=== PATIENT | female | born 1980 ===

== ENCOUNTER 2018-06-10 01:24 | Emergency (ER) | payer MEDICAID ==
--- NOTE | 2018-06-10 01:30 | C.PDOC ---
History Of Present Illness 38 year old female presents to the ED c/o abdominal pain associated with nausea, vomit and diarrhea that started after eating tacos at a restaurant on Saturday. Patient states she is not able to tolerate PO. Patient denies fever, chills, rash, dysuria, hematuria, weakness, numbness. Time Seen by Provider: 06/10/18 01:26 Chief Complaint (Nursing): Abdominal Pain History Per: Patient History/Exam Limitations: no limitations Onset/Duration Of Symptoms: Days (3) Current Symptoms Are (Timing): Still Present Context: Food Location Of Pain/Discomfort: Diffuse Quality Of Discomfort: Aching Associated Symptoms: Nausea, Vomiting, Diarrhea, Loss Of Appetite. denies: Urinary Symptoms Exacerbating Factors: Food Recent travel outside of the [place]: No Additional History Per: Patient Abnormal Vaginal Bleeding: No Past Medical History Reviewed: Historical Data, Nursing Documentation, Vital Signs Vital Signs: Last Vital Signs Temp 98.2 F 06/10/18 01:26 Pulse 102 H 06/10/18 01:26 Resp 20 06/10/18 01:26 BP 122/75 06/10/18 01:26 Pulse Ox 96 06/10/18 01:26 - Medical History PMH: Gastritis Surgical History: No Surg Hx Family History: States: Unknown Family Hx - Social History Hx Alcohol Use: Yes Hx Substance Use: No - Immunization History Hx Tetanus Toxoid Vaccination: No Hx Influenza Vaccination: No Hx Pneumococcal Vaccination: No Review Of Systems Constitutional: Negative for: Fever, Chills Cardiovascular: Negative for: Chest Pain Respiratory: Negative for: Shortness of Breath Gastrointestinal: Positive for: Nausea, Vomiting, Abdominal Pain, Diarrhea Genitourinary: Negative for: Dysuria, Hematuria Musculoskeletal: Negative for: Back Pain Skin: Negative for: Rash Neurological: Negative for: Weakness, Numbness, Headache Physical Exam - Physical Exam Appears: Non-toxic, No Acute Distress Skin: Warm, Dry Head: Normacephalic Eye(s): bilateral: Normal Inspection Oral Mucosa: Moist Neck: Supple Chest: Symmetrical Cardiovascular: Rhythm Regular Respiratory: No Rales, No Rhonchi, No Wheezing Gastrointestinal/Abdominal: Soft, Tenderness (diffuse), No Guarding, No Rebound Extremity: Bilateral: Atraumatic, Normal Color And Temperature, Normal ROM Neurological/Psych: Oriented x3, Normal Speech, Normal Cognition Gait: Steady ED Course And Treatment - Laboratory Results Result Diagrams: 06/10/18 01:57 06/10/18 01:57 O2 Sat by Pulse Oximetry: 96 (On RA) Pulse Ox Interpretation: Normal - CT Scan/US CT abd.pelvis Other Rad Studies (CT/US): Read By Radiologist, Radiology Report Reviewed CT/US Interpretation: CT SCAN OF THE ABDOMEN AND PELVIS WITH CONTRAST. CLINICAL HISTORY: Right upper abdominal pain. TECHNIQUE: Multiple axial and coronal CT images were obtained through the abdomen and pelvis after administration of i ntravenous contrast material. COMMENTS: The liver is of uniform attenuation without mass or defect. There is no intra or extrahepatic biliary ductal dilatation. The spleen is normal. The gallbladder is surgically absent. The pancreas is of normal contour and attenuation characteristics. There is no evidence of adrenal mass. Both kidneys demonstrate prompt and equal nephrograms. The kidneys are normal in size, shape and configuration. There is no evidence of renal or ureteral mass. No renal or ureteral calculi are identified. There is no hydroureter or hydronephrosis. No evidence for append icitis. There is no bowel wall thickening. No evidence for small or large bowel obstruction. There is no evidence of abdominal ascites or lymphadenopathy. Uncomplicated colonic diverticulosis. There is no evidence of intrinsic or extrinsic bladder mass. Mild diffuse thickening of the bladder. There is no pelvic ascites or lymphadenopathy. Pessary is noted in place. Images of the lung bases show no evidence of pleural or parenchymal mass. There are no pleural effusions. The bony structures are free of lytic or blastic lesions. Bilateral breast prostheses are noted. Fat containing a medical hernia without incarceration. IMPRESSION: Prior cholecystectomy. Mild diffuse thickening of the bladder. No evidence of acute abdominal or pelvic pathology. Thank you for your kind referral of this patient. . Electronically signed on Jun 10, 2018 3:50:41 AM EST by: Ann Blandon M.D., Certified by [facility], [facility], Neuroradiology. Progress Note: Plan: - Labs. - Pepcid 20 mg IVP. - Zofran 4 mg IVP. - IV fluids. - UA. 4:06 am pt still vomiting. all blood work negative, including CT Reevaluation Time: 06:10 Reassessment Condition: Improved Disposition Counseled Patient/Family Regarding: Studies Performed, Diagnosis - Disposition Disposition: HOME/ ROUTINE Disposition Time: 01:30 Condition: FAIR Additional Instructions: Please return if symptoms recur Prescriptions: Ondansetron ODT [Zofran ODT] 1 odt PO BID PRN #6 odt PRN Reason: Nausea/Vomiting Instructions: Food Poisoning (DC) Forms: [facility] (Belarusian) - Clinical Impression Clinical Impression: Food poisoning - Scribe Statement The provider has reviewed the documentation as recorded by the Scribe Joe Grider All medical record entries made by the Scribe were at my direction and personally dictated by me. I have reviewed the chart and agree that the record accurately reflects my personal performance of the history, physical exam, medical decision making, and the department course for this patient. I have also personally directed, reviewed, and agree with the discharge instructions and disposition.
[2018-06-10] MEDS ORDERED: Sodium Chloride 0.9% 1,000 ML IV ONE ×2 (01:31→04:24)
[2018-06-10 01:44] LABS: HCG,QUALITATIVE URINE NEGATIVE (NEGATIVE); SQUAMOUS EPITHIAL 26 /hpf (0-5); URINE BILIRUBIN 1+ (NEGATIVE); URINE BLOOD NEGATIVE (NEGATIVE); URINE CLARITY Hazy (Clear); URINE COLOR Amber (YELLOW); URINE GLUCOSE (UA) NORMAL (Normal); URINE LEUKOCYTE ESTERASE 2+ Leu/uL (Negative); URINE PROTEIN 2+ mg/dL (NEGATIVE)
[2018-06-10] MEDS ORDERED: Sodium Chloride 0.9% 1,000 ML ONE (01:48)
[2018-06-10 02:03] LABS: BASO % 0.7 % (0.0-2.0); EOS # 0.1 K/uL (0.0-0.7); EOS % 0.9 % (0.0-4.0); HEMOGLOBIN 12.9 g/dL (11.0-16.0); LYMPH # 1.3 K/uL (1.0-4.3); LYMPH % 18.2 % (20.0-40.0); MEAN CELL VOLUME 95.2 fL (81.0-99.0); MEAN CORPUSCULAR HEMOGLOBIN 32.9 pg (27.0-31.0); MEAN CORPUSCULAR HGB CONC 34.6 g/dL (33.0-37.0); MEAN PLATELET VOLUME 7.7 fL (7.2-11.7); MONO # 0.3 K/uL (0.0-0.8); MONO % 3.8 % (0.0-10.0); NEUT # 5.4 K/uL (1.8-7.0); NEUT % 76.4 % (50.0-75.0); RBC 3.93 Mil/uL (3.80-5.20); WHITE BLOOD COUNT 7.1 K/uL (4.8-10.8)
[2018-06-10 02:21] LABS: ALB/GLOB RATIO 1.2 (1.0-2.1); ALBUMIN 3.8 g/dL (3.5-5.0); ALT/SGPT 16 U/L (9-52); AST/SGOT 18 U/L (14-36); BLOOD UREA NITROGEN 11 mg/dL (7-17); GFR NON-AFRICAN AMERICAN > 60; LIPASE 15 U/L (23-300)
[2018-06-10] MEDS ORDERED: Iodixanol 320 MG/ML 100 ML BOTTLE IV ONE (02:54)
[2018-06-10 05:48] VITALS: BP 106/82; PULSE 82; RESP 16; TEMP 98.1
[2018-06-10 06:11] VITALS: O2SAT 96
--- NOTE | 2018-06-10 10:06 | CT ---
CT abdomen and pelvis HISTORY: Right upper quadrant abdominal pain. Nausea and vomiting. COMPARISON: None available. TECHNIQUE: Multiple contiguous axial images were performed through the abdomen and pelvis with the use of intravenous contrast. Subsequently, sagittal and coronal reformatted images were obtained. This CT exam was performed using one or more of the following dose reduction techniques: Automated exposure control, adjustment of the mA and/or kV according to patient size, and/or use of iterative reconstruction technique. Findings: Bilateral breast prostheses are noted. Mild atelectasis at the left lung base. No pleural or pericardial effusion. Mild intrahepatic biliary ductal dilatation, status post cholecystectomy. Mild postsurgical prominence of the common bile duct. Spleen is preserved. Adrenal glands are preserved. Pancreas is grossly preserved. Mild heterogeneity at the head of the pancreas, nonspecific. Few adjacent shotty mesenteric lymph nodes inferior to the pancreatic bed. Clinical correlation. Few mildly distended loops of small bowel in the mid abdomen, nonspecific. Right kidney: No calculi or hydronephrosis. Left Kidney: No calculi or hydronephrosis. Mild thickening of the urinary bladder. Vaginal ring device in place. Heterogeneity of the uterus. Under distended descending colon. Few scattered colonic diverticuli. Appendix is within normal limits. Few shotty para-aortic lymph nodes. Few shotty mesenteric lymph nodes in the upper to mid abdomen as demonstrated on series 2, images 30-35, nonspecific. Tiny fat containing umbilical hernia. Sclerosis of the left SI joint. Mild loss of height and or Schmorl's node formation at the superior endplate of the T11 vertebral body. Few punctate bone islands in the proximal femurs bilaterally. Impression: 1. Mild thickening of the urinary bladder. Clinical correlation. 2. Mild heterogeneity at the head of the pancreas, nonspecific. Few adjacent shotty mesenteric lymph nodes inferior to the pancreatic bed. Clinical correlation. 3. Few mildly distended loops of small bowel in the mid abdomen, nonspecific. Clinical correlation. 4. Few shotty mesenteric lymph nodes in the upper to mid abdomen as demonstrated on series 2, images 30-35, nonspecific. Clinical correlation. 5. Mild intrahepatic biliary ductal dilatation, status post cholecystectomy. Mild postsurgical prominence of the common bile duct. Clinical correlation. 6. Sclerosis of the left SI joint. 7. Mild loss of height and or Schmorl's node formation at the superior endplate of the T11 vertebral body. Additional findings as above. A preliminary report was generated at 3:50 a.m. on 06/10/[address] Ann Blandon from [facility].
== END 2018-06-10 06:42 | disposition home or self-care (01) ==
LOC: C.ER 01:24
DX: T62.91XA Toxic effect of unspecified noxious substance eaten as food, accidental (unintentional), initial encounter (principal); Y92.511 Restaurant or cafe as the place of occurrence of the external cause
CPT/HCPCS: 74177; 80053; 81001; 83690; 84703; 85025; 96361; 96374; 96375; 99285; J1885; J2060; J2270; J2405; J2765; J7030; Q9967